=== PATIENT | male | born 1960 | race Caucasian/White ===

== ENCOUNTER 2017-04-25 15:53 | Emergency (ER) | payer BC ==
[~2017-04-25] VITALS: Ht 177.8 cm; Wt 78.9 kg
[2017-04-25 16:07] VITALS: TEMP 36.6; Ht 177.8 cm; Wt 78.9 kg
[2017-04-25] MEDS ORDERED: OXYCODONE/ACETAMINOPHEN 5-325 TAB PO STA (16:18)
[2017-04-25] MEDS ORDERED: MAGN400T6 PO (16:34)
[2017-04-25] MEDS ORDERED: MULT-506 PO (16:34)
[2017-04-25] MEDS ORDERED: OMEG10007 PO (16:34)
[2017-04-25] MEDS ORDERED: CYAN10005 PO (16:34)
--- NOTE | 2017-04-25 17:06 | DIAGNOSTIC IMAGING REPORT ---
L RIBS UNILATERAL WITH PA CHEST CLINICAL HISTORY: Left posterior rib pain following trauma. COMPARISON STUDY: No previous studies for comparison. FINDINGS: There is no pneumothorax. There is a suspected trace left pleural effusion. Left basilar opacity favors atelectasis. There are suspected cervical ribs. There are acute mildly displaced fractures of the lateral left fifth, sixth and seventh ribs with an acute nondisplaced fracture of the lateral left eighth rib. There are several age indeterminate minimally displaced posterior left rib fractures, including the left ninth rib. There is suspected emphysema. Cardiomediastinal silhouette is unremarkable. IMPRESSION: 1. Acute mildly displaced fractures of the lateral left fifth, sixth and seventh ribs and acute nondisplaced fracture of the lateral left eighth rib. Several age indeterminate minimally displaced posterior left-sided rib fractures. No pneumothorax. Trace left pleural effusion which may reflect a tiny hemothorax. 2. Suspected emphysema. Electronically signed by: Arnoldo Gabriel M.D. 04/25/2017 5:04 PM Dictated Date/Time: 04/25/2017 4:57 PM
[2017-04-25] MEDS ORDERED: OXYC-106 PO (17:36)
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
[2017-04-25 18:23] VITALS: BP 128/76; PULSE 81; O2SAT 98
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
== END 2017-04-25 18:25 | disposition home or self-care (01) ==
LOC: C.EDB 15:56 → C.EDC 18:25
DX: S22.42XA Multiple fractures of ribs, left side, initial encounter for closed fracture (principal); V28.0XXA Motorcycle driver injured in noncollision transport accident in nontraffic accident, initial encounter; Y93.55 Activity, bike riding; J90 Pleural effusion, not elsewhere classified; Z86.718 Personal history of other venous thrombosis and embolism

== ENCOUNTER 2017-04-27 10:17 | Inpatient (IN) | payer BC ==
[~2017-04-27] VITALS: Ht 175.3 cm; Wt 78.6 kg
[~2017-04-27 10:17] MED LIST: CYAN10005 PO; MAGN400T6 PO; MULT-506 PO; OMEG10007 PO; OXYC-106 PO
[2017-04-27] MEDS ORDERED: SODIUM CHLORIDE 0.9% 1000ML 1,000 ML IV STA (10:37)
[2017-04-27] MEDS ORDERED: ONDANSETRON INJ 2 MG/ML 2 ML VIAL IV STA (10:37)
[2017-04-27] MEDS ORDERED: MoRPHine SULFATE 10 MG/ML CARP/VIAL IV STA (10:37)
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
[2017-04-27 11:11] LABS: COMPLETE YES; HEMATOCRIT 47.2 % (42-52); IG% 0.2 %; LYMPH ABS # 0.89 K/uL (1.2-3.4); MEAN CELL VOLUME 94.6 fL (80-100); MEAN CORPUSCULAR HEMOGLOBIN 31.7 pg (25-34); MEAN CORPUSCULAR HGB CONC 33.5 g/dl (32-36); MEAN PLATELET VOLUME 10.9 fL (7.4-10.4); MONO % 8.9 %; NEUT % 84.9 %; PLATELET COUNT 183 K/uL (130-400); RED BLOOD COUNT 4.99 M/uL (4.7-6.1); WHITE BLOOD COUNT 14.79 K/uL (4.8-10.8)
--- NOTE | 2017-04-27 11:12 | DIAGNOSTIC IMAGING REPORT ---
CHEST ONE VIEW PORTABLE CLINICAL HISTORY: Increasing chest pain. Fractures. Trauma. COMPARISON STUDY: 04/25/2017 FINDINGS: The cardiac and mediastinal contours remain stable. There are progressive bibasilar opacities, likely atelectatic, although a pneumonia could appear similar. No pneumothorax is visualized.[ IMPRESSION: Developing bibasilar opacities, likely atelectatic. No evidence of pneumothorax. Suspected trace pleural effusions. Electronically signed by: Juanito Landeros M.D. 04/27/2017 11:11 AM Dictated Date/Time: 04/27/2017 11:09 AM
[2017-04-27 11:35] LABS: ALT/SGPT 30 U/L (12-78); AST/SGOT 21 U/L (15-37); BLOOD UREA NITROGEN 15 mg/dl (7-18); BUN/CREATININE RATIO 17.3 (10-20); CALCIUM 8.8 mg/dl (8.5-10.1); CARBON DIOXIDE 31 mmol/L (21-32); CHLORIDE 98 mmol/L (98-107); CREATININE 0.89 mg/dl (0.60-1.40); GLUCOSE 149 mg/dl (70-99); POTASSIUM 4.1 mmol/L (3.5-5.1); SODIUM 135 mmol/L (136-145)
[2017-04-27 11:37] LABS: ALKALINE PHOSPHATASE 83 U/L (45-117)
[2017-04-27] MEDS ORDERED: MoRPHine SULFATE 4 MG/ML 1 ML CARP\\VIAL IV STA ×2 (11:53→13:38)
[2017-04-27] MEDS ORDERED: OPTIRAY 320 IV PRN (13:15)
--- NOTE | 2017-04-27 13:17 | DIAGNOSTIC IMAGING REPORT ---
CT OF THE CHEST WITH IV CONTRAST CLINICAL HISTORY: Worsening left-sided chest wall pain COMPARISON STUDY: Conventional radiographic study of the ribs dated 04/25/2017 TECHNIQUE: Following the IV administration of 93 mL of Optiray-320, CT of the thorax was performed from the thoracic inlet to the lung bases. Images are reviewed in the axial, sagittal, and coronal planes. IV contrast was administered without complication. A dose lowering technique was utilized adhering to the principles of ALARA. CT DOSE: 1695.13 mGy.cm FINDINGS: Thyroid: Imaged portions of the thyroid gland are normal in appearance. Thoracic aorta: The thoracic aorta is normal in course and caliber, noting standard 3-vessel arch anatomy. No aneurysm or dissection is seen. Pulmonary vasculature: The pulmonary trunk is normal in caliber. There are no central filling defects identified to suggest pulmonary embolus. Note that this examination was not protocoled for the evaluation of pulmonary emboli. HEART: The heart is normal in size and configuration, without pericardial effusion. Lungs and pleural spaces: No pneumothorax is visualized. There are low lung volumes. There is a small left pleural effusion. There are bibasilar opacities, likely representing atelectasis. There is a calcified granuloma within the lingula. Mediastinum: There is no mediastinal lymphadenopathy. Lilian: Clear. Axilla: Clear. Upper abdomen: Partially visualized upper abdominal viscera is within normal limits. Skeletal structures: There are fractures of the left fifth through 10th ribs. IMPRESSION: 1. Fractures of the left fifth through 10th ribs 2. No evidence of pneumothorax 3. No evidence of mediastinal hematoma 4. Small left pleural effusion 5. Low lung volumes with dependent airspace opacities, statistically atelectatic. Electronically signed by: Juanito Landeros M.D. 04/27/2017 1:16 PM Dictated Date/Time: 04/27/2017 1:09 PM
--- NOTE | 2017-04-27 13:19 | DIAGNOSTIC IMAGING REPORT ---
CT ABD/PELVIS IV AND ORAL CONT CLINICAL HISTORY: Increasing left-sided pain status post trauma COMPARISON STUDY: None. TECHNIQUE: Following the IV administration of 93 mL of Optiray-320, CT scan of the abdomen and pelvis was performed from the lung bases to the proximal femurs. Images are reviewed in the axial, sagittal, and coronal planes. IV contrast was administered without complication. A dose lowering technique was utilized adhering to the principles of ALARA. CT DOSE: FINDINGS: Lower chest: There is a small left pleural effusion. There are dependent bibasilar airspace opacities likely atelectatic. Multiple left-sided rib fractures are visualized. Liver: The contrast-enhanced liver is normal in size, contour, and attenuation. There is no intrahepatic biliary ductal dilatation. The hepatic veins and portal veins are patent. Gallbladder: Unremarkable. Spleen: Normal in size and attenuation. Pancreas: Unremarkable. Adrenal glands: Unremarkable. Kidneys: There is symmetric renal cortical enhancement. The kidneys are normal in size without hydronephrosis. Bowel: There are no transition zones indicate bowel obstruction. There are no extraluminal air collections. There is no interloop fluid. There is no acute diverticulitis. There are no findings to indicate acute appendicitis. Peritoneum: There is no intraperitoneal free air or abdominal ascites. Vasculature: The abdominal aorta is normal in course and caliber. Adenopathy: None. Pelvic viscera: The prostate is mildly enlarged Skeletal structures: There are multiple left-sided rib fractures IMPRESSION: 1. No evidence of acute intra-abdominal or pelvic injury 2. Multiple left-sided rib fractures 3. Small left pleural effusion 4. Low lung volumes with dependent bibasal airspace opacities likely atelectatic Electronically signed by: Juanito Landeros M.D. 04/27/2017 1:18 PM Dictated Date/Time: 04/27/2017 1:16 PM
[2017-04-27] MEDS ORDERED: LORAZEPAM 2 MG/ML 1 ML VIAL IV STA (13:38)
[2017-04-27] MEDS ORDERED: ZOLPIDEM TARTRATE 5 MG TAB PO PRN (14:00)
[2017-04-27] MEDS ORDERED: ACETAMINOPHEN 325 MG TAB PO PRN (14:00)
[2017-04-27] MEDS ORDERED: ONDANSETRON INJ 2 MG/ML 2 ML VIAL IV PRN (14:00)
[2017-04-27] MEDS ORDERED: MAGNESIUM HYDROXIDE SUSP 30 ML UDC PO PRN (14:00)
[2017-04-27] MEDS ORDERED: ALUMINUM/MAGNESIUM/SIMETH (MAALOX MAX) 30 ML UDC PO PRN (14:00)
[2017-04-27] MEDS ORDERED: PANTOprazole SOD 40 MG TAB PO STA (14:03)
[2017-04-27] MEDS ORDERED: HYDROCODONE/ACETAMOPHEN 5/325MG TAB PO PRN (14:15)
[2017-04-27] MEDS ORDERED: HydrALAZINE HCL 20 MG/ML VIAL IV. PRN (14:15)
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
[2017-04-27] MEDS ORDERED: MoRPHine SULFATE 4 MG/ML 1 ML CARP\\VIAL IV PRN (14:30)
[2017-04-27] MEDS ORDERED: IV FLUIDS COMPLETED PRN (15:15)
[2017-04-27 15:50] VITALS: BP 140/88; PULSE 103; TEMP 36.7; O2SAT 97; Ht 175.3 cm; Wt 78.6 kg
[2017-04-27 16:00] VITALS: O2SAT 98
[2017-04-27] MEDS: SODIUM CHLORIDE 0.9% 1000ML 1,000 ML IV SCH (16:01)
[2017-04-27 17:10] LABS: PROTHROMBIN TIME (PATIENT) 10.7 SECONDS (9.0-12.0)
[2017-04-27 17:11] LABS: URINE APPEARANCE CLEAR (CLEAR); URINE BILIRUBIN NEG (NEG); URINE COLOR YELLOW; URINE NITRITE NEG (NEG); URINE SPECIFIC GRAVITY > 1.045 (1.000-1.030); UROBILINOGEN NEG (NEG); ZZUR CULT IF INDIC CLEAN CATCH NO
[2017-04-27 17:30] LABS: MANUAL MICROSCOPIC REQUIRED? NO; REVIEW REQ? NO
[2017-04-27] MEDS: POLYETHYLENE (MIRALAX) 17 GM PACK PO PRN (17:42)
[2017-04-27 18:58] VITALS: BP 123/73; PULSE 92; TEMP 37.4; O2SAT 99
[2017-04-27] MEDS: HYDROCODONE/ACETAMOPHEN 5/325MG TAB PO PRN (21:22)
[2017-04-27] MEDS: HEPARIN SOD 5000 UNIT/0.5 ML CARP SQ SCH (21:23)
[2017-04-28] VITALS (9 sets, daily range): BP systolic 100–141; BP diastolic 57–85; PULSE 66–80; TEMP 36.6–37.1; O2SAT 86–99
[2017-04-28] MEDS: SODIUM CHLORIDE 0.9% 1000ML 1,000 ML IV SCH ×2 (02:16→12:21)
[2017-04-28] MEDS: HYDROCODONE/ACETAMOPHEN 5/325MG TAB PO PRN (03:11)
[2017-04-28] MEDS: HEPARIN SOD 5000 UNIT/0.5 ML CARP SQ SCH ×3 (06:14→21:17)
[2017-04-28] MEDS ORDERED: KETOROLAC TROMETHAMINE 30 MG/ML VIAL IV ONE (08:45)
[2017-04-28] MEDS: OMEGA-3 (PURIFIED FISH OIL) 1 GM CAP PO SCH (09:24)
[2017-04-28] MEDS: MULTIVITAMIN TAB PO SCH (09:25)
[2017-04-28] MEDS: PANTOprazole SOD 40 MG TAB PO SCH (09:25)
[2017-04-28] MEDS: MAGNESIUM OXIDE 400 MG TAB PO SCH (09:26)
[2017-04-28] MEDS: CYANOCOBALAMIN 500 MCG TAB (VIT B-12) PO SCH (09:26)
[2017-04-28] MEDS: LIDODERM (LIDOCAINE) PATCH 5% TD SCH (10:07)
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
[2017-04-28] MEDS: POLYETHYLENE (MIRALAX) 17 GM PACK PO PRN ×2 (11:16→11:17)
[2017-04-28] MEDS: SENNA 8.6 MG TAB PO SCH (12:00)
[2017-04-28] MEDS: ACETAMINOPHEN 500 MG TAB PO SCH ×2 (12:46→21:13)
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
[2017-04-28] MEDS: OXYCODONE HCL IR 5 MG TAB (IMMEDIATE RELEASE) PO PRN ×2 (17:36→23:26)
[2017-04-28] MEDS: BACLOFEN 10 MG TAB PO PRN (21:12)
[2017-04-29] VITALS (8 sets, daily range): BP systolic 115–133; BP diastolic 65–82; PULSE 65–89; TEMP 36.7–37.1; O2SAT 92–97
[2017-04-29] MEDS: BACLOFEN 10 MG TAB PO PRN ×3 (04:37→19:26)
[2017-04-29] MEDS: ACETAMINOPHEN 500 MG TAB PO SCH ×3 (06:34→20:44)
[2017-04-29] MEDS: HEPARIN SOD 5000 UNIT/0.5 ML CARP SQ SCH ×3 (06:34→20:47)
[2017-04-29] MEDS: OXYCODONE HCL IR 5 MG TAB (IMMEDIATE RELEASE) PO PRN ×3 (06:35→19:26)
[2017-04-29] MEDS: MAGNESIUM OXIDE 400 MG TAB PO SCH (07:18)
[2017-04-29] MEDS: MULTIVITAMIN TAB PO SCH (07:19)
[2017-04-29] MEDS: SENNA 8.6 MG TAB PO SCH (07:19)
[2017-04-29] MEDS: OMEGA-3 (PURIFIED FISH OIL) 1 GM CAP PO SCH (07:19)
[2017-04-29] MEDS: LIDODERM (LIDOCAINE) PATCH 5% TD SCH ×2 (07:19→10:15)
[2017-04-29] MEDS: CYANOCOBALAMIN 500 MCG TAB (VIT B-12) PO SCH (07:19)
[2017-04-29] MEDS: PANTOprazole SOD 40 MG TAB PO SCH (07:19)
[2017-04-29] MEDS: NAPROXEN 250 MG TAB PO SCH ×2 (08:56→20:45)
[2017-04-29] MEDS: TAPENTADOL ER 50 MG TABCR PO SCH ×2 (10:14→20:48)
--- NOTE | 2017-04-29 14:38 | DIAGNOSTIC IMAGING REPORT ---
CHEST 2 VIEWS ROUTINE CLINICAL HISTORY: rib fractures, effusions, interval change COMPARISON STUDY: 04/27/2017 FINDINGS: Mild interval increase in volume of left pleural effusion. Lungs otherwise are clear. No evidence pneumothorax. IMPRESSION: Mild increase in volume of a left pleural effusion. No evidence pneumothorax. The above report was generated using voice recognition software. It may contain grammatical, syntax or spelling errors. Electronically signed by: Mynor Lorenz M.D. 04/29/2017 2:36 PM Dictated Date/Time: 04/29/2017 2:35 PM
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
[2017-04-30] MEDS: OXYCODONE HCL IR 5 MG TAB (IMMEDIATE RELEASE) PO PRN ×4 (00:55→19:53)
[2017-04-30 03:54] VITALS: BP 126/79; PULSE 60; TEMP 36.7; O2SAT 97
[2017-04-30 06:05] LABS: HEMATOCRIT 38.8 % (42-52); MEAN CELL VOLUME 94.4 fL (80-100); MEAN CORPUSCULAR HEMOGLOBIN 30.4 pg (25-34); MEAN CORPUSCULAR HGB CONC 32.2 g/dl (32-36); MEAN PLATELET VOLUME 10.8 fL (7.4-10.4); PLATELET COUNT 170 K/uL (130-400); RED BLOOD COUNT 4.11 M/uL (4.7-6.1); WHITE BLOOD COUNT 5.84 K/uL (4.8-10.8)
[2017-04-30] MEDS: ACETAMINOPHEN 500 MG TAB PO SCH ×3 (06:18→21:22)
[2017-04-30 06:35] LABS: BUN/CREATININE RATIO 19.6 (10-20); CALCIUM 8.4 mg/dl (8.5-10.1); CREATININE 0.69 mg/dl (0.60-1.40)
--- NOTE | 2017-04-30 07:10 | DIAGNOSTIC IMAGING REPORT ---
CHEST ONE VIEW PORTABLE CLINICAL HISTORY: Left-sided chest pain. History of pleural effusion. COMPARISON STUDY: 04/29/2017 FINDINGS: There is a persistent moderate left pleural effusion with associated left basilar atelectasis/consolidation. Minor right basilar atelectatic changes remain stable. There is no pneumothorax. Heart is mildly enlarged.[ IMPRESSION: No significant change. Persistent moderate left pleural effusion with associated left basilar airspace opacities. No evidence of pneumothorax. Electronically signed by: Juanito Landeros M.D. 04/30/2017 7:09 AM Dictated Date/Time: 04/30/2017 7:08 AM
[2017-04-30 07:36] VITALS: BP 126/72; PULSE 76; TEMP 36.7; O2SAT 98
[2017-04-30] MEDS: PANTOprazole SOD 40 MG TAB PO SCH (08:16)
[2017-04-30] MEDS: CYANOCOBALAMIN 500 MCG TAB (VIT B-12) PO SCH (08:16)
[2017-04-30] MEDS: TAPENTADOL ER 50 MG TABCR PO SCH ×2 (08:16→19:52)
[2017-04-30] MEDS: NAPROXEN 250 MG TAB PO SCH ×2 (08:16→19:56)
[2017-04-30] MEDS: SENNA 8.6 MG TAB PO SCH (08:16)
[2017-04-30] MEDS: MAGNESIUM OXIDE 400 MG TAB PO SCH (08:17)
[2017-04-30] MEDS: OMEGA-3 (PURIFIED FISH OIL) 1 GM CAP PO SCH (08:17)
[2017-04-30] MEDS: MULTIVITAMIN TAB PO SCH (08:17)
[2017-04-30] MEDS: LIDODERM (LIDOCAINE) PATCH 5% TD SCH (09:32)
[2017-04-30 10:58] VITALS: BP 124/70; PULSE 65; TEMP 36.7; O2SAT 95
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
[2017-04-30 16:07] VITALS: BP 148/88; PULSE 60; TEMP 36.9; O2SAT 94
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
[2017-04-30 19:14] VITALS: BP 116/66; PULSE 65; TEMP 36.8; O2SAT 95
[2017-04-30 23:51] VITALS: BP_SYST 116; BP_DIAS 60; BP_DIAS 67; PULSE 62; PULSE 76; TEMP 36.6; TEMP 36.9; O2SAT 92; O2SAT 93
[2017-05-01] VITALS (13 sets, daily range): BP systolic 101–135; BP diastolic 55–78; PULSE 52–86; TEMP 36.7–37.8; O2SAT 93–97
[2017-05-01] MEDS: ACETAMINOPHEN 500 MG TAB PO SCH (05:40)
[2017-05-01] MEDS: OXYCODONE HCL IR 5 MG TAB (IMMEDIATE RELEASE) PO PRN ×2 (05:40→16:09)
[2017-05-01] MEDS ORDERED: DEXAMETHASONE SOD INJ 4 MG/ML VIAL ONE (06:31)
[2017-05-01] MEDS ORDERED: MIDAZOLAM HCL 1 MG/ML 2ML VIAL ONE (06:31)
[2017-05-01] MEDS ORDERED: LIDOCAINE HCL 2% 2 ML VIAL (20MG/ML) ONE (06:31)
[2017-05-01] MEDS ORDERED: ROCURONIUM BROMIDE 10 MG/ML 5 ML VIAL IV ONE (06:31)
[2017-05-01] MEDS ORDERED: FENTANYL CITRATE INJ 50 MCG/1 ML 2 ML VIAL ONE (06:31)
[2017-05-01] MEDS ORDERED: ONDANSETRON INJ 2 MG/ML 2 ML VIAL ONE (06:31)
[2017-05-01] MEDS ORDERED: PROPOFOL IV EMULSION 10 MG/ML 20 ML VIAL IV ONE ×2 (06:31→08:29)
[2017-05-01] MEDS ORDERED: CLINDAMYCIN PHOS 150 MG/ML 2 ML VIAL ONE (06:50)
[2017-05-01] MEDS ORDERED: SODIUM CHLORIDE 0.9% PF 50 ML VIAL ONE (06:55)
[2017-05-01] MEDS ORDERED: BUPIVACAINE LIPOSOME 1/3% 266 MG/20 ML VIAL INFIL ONE (06:55)
--- NOTE | 2017-05-01 07:05 | History & Physical Bridge Note ---
H&P Re-Evaluation Bridge Note: I have examined the patient, reviewed the History & Physical and in the interval since the performance of the History & Physical I have noted the following changes of clinical significance: No changes noted
[2017-05-01] MEDS ORDERED: NEOSTIGMINE METHYLSULFATE 5 MG/5 ML SYR ONE (08:29)
[2017-05-01] MEDS ORDERED: GLYCOPYRROLATE INJ 0.2 MG/ML VIAL ONE (08:29)
[2017-05-01 08:39] LABS: MEAN CELL VOLUME 93.6 fL (80-100); MEAN CORPUSCULAR HEMOGLOBIN 30.8 pg (25-34); MEAN CORPUSCULAR HGB CONC 32.9 g/dl (32-36); MEAN PLATELET VOLUME 11.2 fL (7.4-10.4); PLATELET COUNT 206 K/uL (130-400); RED BLOOD COUNT 4.38 M/uL (4.7-6.1); WHITE BLOOD COUNT 5.25 K/uL (4.8-10.8)
[2017-05-01] MEDS ORDERED: HYDROmorphone INJ 1 MG/ML SYR IV PRN (09:00)
[2017-05-01] MEDS: LIDODERM (LIDOCAINE) PATCH 5% TD SCH (09:00)
[2017-05-01] MEDS ORDERED: EpHEDrine SULFATE INJ 50 MG/ML AMP IV PRN (09:00)
[2017-05-01] MEDS ORDERED: ATROPINE SULFATE 0.1 MG/ML 5ML SYR IV PRN (09:00)
[2017-05-01] MEDS ORDERED: ONDANSETRON INJ 2 MG/ML 2 ML VIAL IV PRN (09:00)
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
--- NOTE | 2017-05-01 09:11 | DIAGNOSTIC IMAGING REPORT ---
CHEST ONE VIEW PORTABLE HISTORY: effusion COMPARISON: Chest 04/30/2017. FINDINGS: Left-sided chest tube terminates in the left upper lung zone. There is a small left pneumothorax with a maximal pleural gap of 1.4 cm. Trace left pleural effusion has improved. Patchy densities within the left lung base favor atelectasis. Suspect a trace right pleural effusion. A few scattered densities within the right midlung zone also favor atelectasis. The heart is stable in size. IMPRESSION: 1. Decrease in size in the left pleural effusion status post chest tube placement. There is a small left pneumothorax. 2. Left basilar airspace opacities are nonspecific but favor atelectasis. 3. A few linear densities within the right midlung zone. Electronically signed by: Vance Rosario M.D. 05/01/2017 9:09 AM Dictated Date/Time: 05/01/2017 9:06 AM
[2017-05-01] MEDS: FENTANYL CITRATE INJ 50 MCG/1 ML 2 ML VIAL IV PRN ×4 (09:14→09:30)
[2017-05-01 09:31] LABS: PLEURAL FLUID TOTAL PROTEIN 4.2 g/dl
--- NOTE | 2017-05-01 09:54 | Anesthesiology Progress Note ---
Anesthesia Post Op Note Date & Time May 01, 2017 at 09:53 Vital Signs Pain Intensity: 0 Vital Signs Past 12 Hours Date Time Temp Pulse Resp B/P (MAP) Pulse Ox O2 Delivery O2 Flow Rate FiO2 05/01/17 09:49 55 14 97 05/01/17 09:49 56 14 05/01/17 09:48 56 14 05/01/17 09:48 56 14 99 05/01/17 09:46 112/69 05/01/17 09:43 64 12 05/01/17 09:43 65 12 98 05/01/17 09:41 114/71 05/01/17 09:38 64 13 100 05/01/17 09:38 65 13 05/01/17 09:36 113/68 05/01/17 09:33 59 14 98 05/01/17 09:33 58 14 05/01/17 09:32 63 14 99 05/01/17 09:32 63 14 05/01/17 09:31 115/73 05/01/17 09:27 63 15 05/01/17 09:27 64 15 100 05/01/17 09:26 122/77 05/01/17 09:22 75 18 05/01/17 09:22 70 18 05/01/17 09:21 119/79 05/01/17 09:17 56 12 100 05/01/17 09:17 56 12 05/01/17 09:16 36.7 65 17 121/74 (84) 99 Nasal Cannula 2 05/01/17 09:16 121/74 05/01/17 09:13 61 21 100 05/01/17 09:13 61 21 05/01/17 09:11 121/72 05/01/17 09:08 63 15 100 05/01/17 09:08 63 15 05/01/17 09:06 118/73 05/01/17 09:03 66 18 100 05/01/17 09:03 65 18 05/01/17 09:02 66 17 05/01/17 09:02 66 17 100 05/01/17 09:01 67 19 127/83 97 05/01/17 09:01 68 19 05/01/17 08:57 131/64 05/01/17 08:56 69 17 100 05/01/17 08:56 69 17 05/01/17 08:51 70 17 05/01/17 08:51 71 17 124/74 100 05/01/17 08:46 76 22 122/73 97 05/01/17 08:46 73 22 05/01/17 08:42 124/76 05/01/17 08:41 36.6 83 16 124/76 (82) 100 Oxymask 10 05/01/17 07:30 Room Air 2.0 05/01/17 04:00 Room Air 05/01/17 03:50 36.7 66 18 117/69 (85) 95 Room Air 05/01/17 00:01 Room Air 04/30/17 23:51 36.6 76 18 116/60 (78) 92 Nasal Cannula 2.0 Humidified Oxygen 04/30/17 23:51 36.9 62 18 116/67 (83) 93 Room Air Notes Mental Status: alert / awake / arousable, participated in evaluation Pt Amnestic to Procedure: Yes Nausea / Vomiting: adequately controlled Pain: adequately controlled Airway Patency, RR, SpO2: stable & adequate BP & HR: stable & adequate Hydration State: stable & adequate Anesthetic Complications: no major complications apparent
[2017-05-01] MEDS: D5W AND 1/2NSS 1,000 ML IV SCH ×2 (10:00→18:34)
[2017-05-01] MEDS: KETOROLAC TROMETHAMINE 15 MG/ML VIAL IV. SCH ×2 (10:32→18:13)
[2017-05-01 10:34] LABS: PLEURAL FLUID APPEARANCE CLOUDY; PLEURAL FLUID COLOR RED; PLEURAL FLUID SOURCE LEFT LUNG; PLEURAL FLUID WBC (A) 1739 /uL
[2017-05-01 10:35] LABS: PLEURAL FLUID MONONUC RELAT 85.4 %; PLEURAL FLUID POLYNUC 14.6 %
[2017-05-01] MEDS: TAPENTADOL ER 50 MG TABCR PO SCH ×2 (11:46→20:44)
[2017-05-01] MEDS: SENNA 8.6 MG TAB PO SCH (11:46)
[2017-05-01] MEDS: OMEGA-3 (PURIFIED FISH OIL) 1 GM CAP PO SCH (11:47)
[2017-05-01] MEDS: MULTIVITAMIN TAB PO SCH (11:47)
[2017-05-01] MEDS: DOCUSATE SODIUM 100 MG CAP PO SCH ×2 (11:47→20:37)
[2017-05-01] MEDS: CYANOCOBALAMIN 500 MCG TAB (VIT B-12) PO SCH (11:47)
[2017-05-01] MEDS: PANTOprazole SOD 40 MG TAB PO SCH (11:47)
[2017-05-01] MEDS: NAPROXEN 250 MG TAB PO SCH ×2 (11:48→20:38)
[2017-05-01] MEDS: METOCLOPRAMIDE HCL INJ 5 MG/ML 2 ML VIAL IV. SCH ×2 (11:48→18:13)
[2017-05-01] MEDS: MAGNESIUM OXIDE 400 MG TAB PO SCH (11:48)
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
[2017-05-01] MEDS: ACETAMINOPHEN IV 1,000 MG in EMPTY BAG 0 ML IV SCH ×2 (13:57→21:38)
[2017-05-01] MEDS: CLINDAMYCIN IV 900 MG in DEXTROSE 5% 100ML 100 ML IV SCH ×2 (14:26→20:37)
[2017-05-02] MEDS: METOCLOPRAMIDE HCL INJ 5 MG/ML 2 ML VIAL IV. SCH (02:11)
[2017-05-02] MEDS: KETOROLAC TROMETHAMINE 15 MG/ML VIAL IV. SCH ×3 (02:11→18:00)
[2017-05-02 03:56] VITALS: BP 105/55; PULSE 72; TEMP 36.9; O2SAT 95
[2017-05-02 05:46] LABS: HEMATOCRIT 39.1 % (42-52); MEAN CELL VOLUME 93.1 fL (80-100); MEAN CORPUSCULAR HGB CONC 33.2 g/dl (32-36); MEAN PLATELET VOLUME 10.5 fL (7.4-10.4); PLATELET COUNT 189 K/uL (130-400); WHITE BLOOD COUNT 8.71 K/uL (4.8-10.8)
[2017-05-02] MEDS: D5W AND 1/2NSS 1,000 ML IV SCH ×2 (06:19→14:30)
[2017-05-02] MEDS: ACETAMINOPHEN IV 1,000 MG in EMPTY BAG 0 ML IV SCH ×4 (06:24→17:21)
[2017-05-02 06:29] LABS: BUN/CREATININE RATIO 19.3 (10-20); CALCIUM 8.3 mg/dl (8.5-10.1); CREATININE 0.78 mg/dl (0.60-1.40)
[2017-05-02] MEDS: OXYCODONE HCL IR 5 MG TAB (IMMEDIATE RELEASE) PO PRN ×2 (06:49→17:24)
--- NOTE | 2017-05-02 07:18 | DIAGNOSTIC IMAGING REPORT ---
CHEST ONE VIEW PORTABLE HISTORY: 57 years-old Male effusion left pleural effusion COMPARISON: Chest radiograph 05/01/2017 TECHNIQUE: Portable upright AP view of the chest FINDINGS: Large bore left-sided chest tube is seen with distal tip projecting towards the left lung apex. Slightly decreased size of left-sided hydropneumothorax with visceral pleural separation at the left lung apex of 12 mm, previously 14. Minimal left pleural fluid is again seen with subsegmental left basilar consolidation suggesting atelectasis, also slightly improved. Minimal atelectasis of the right lung base. Bones are grossly intact. IMPRESSION: 1. Slightly decreased size of left hydropneumothorax with stable positioning of left-sided chest tube. 2. Mild bibasilar atelectasis. The above report was generated using voice recognition software. It may contain grammatical, syntax or spelling errors. Electronically signed by: Ty Savage M.D. 05/02/2017 7:16 AM Dictated Date/Time: 05/02/2017 7:13 AM
[2017-05-02 07:50] VITALS: BP 123/73; PULSE 58; TEMP 36.8; O2SAT 97
--- NOTE | 2017-05-02 07:59 | Anesthesiology Progress Note ---
Anesthesia Post Op Note Date & Time May 02, 2017 at 07:59 Vital Signs Vital Signs Past 12 Hours Date Time Temp Pulse Resp B/P (MAP) Pulse Ox O2 Delivery O2 Flow Rate FiO2 05/02/17 07:50 36.8 58 18 123/73 (90) 97 Room Air 05/02/17 04:00 Room Air 05/02/17 03:56 36.9 72 17 105/55 (72) 95 Room Air 05/01/17 23:59 Room Air 05/01/17 23:35 36.7 62 20 105/55 (72) 94 Room Air 05/01/17 20:00 94 Room Air Notes Mental Status: alert / awake / arousable, participated in evaluation Pt Amnestic to Procedure: Yes Nausea / Vomiting: adequately controlled Pain: adequately controlled Airway Patency, RR, SpO2: stable & adequate BP & HR: stable & adequate Hydration State: stable & adequate Anesthetic Complications: no major complications apparent
[2017-05-02] MEDS: SENNA 8.6 MG TAB PO SCH (08:38)
[2017-05-02] MEDS: PANTOprazole SOD 40 MG TAB PO SCH (08:38)
[2017-05-02] MEDS: NAPROXEN 250 MG TAB PO SCH ×2 (08:38→20:47)
[2017-05-02] MEDS: POLYETHYLENE (MIRALAX) 17 GM PACK PO PRN (08:38)
[2017-05-02] MEDS: TAPENTADOL ER 50 MG TABCR PO SCH ×2 (08:38→20:46)
[2017-05-02] MEDS: MULTIVITAMIN TAB PO SCH (08:38)
[2017-05-02] MEDS: CYANOCOBALAMIN 500 MCG TAB (VIT B-12) PO SCH (08:39)
[2017-05-02] MEDS: DOCUSATE SODIUM 100 MG CAP PO SCH ×2 (08:39→20:46)
[2017-05-02] MEDS: LIDODERM (LIDOCAINE) PATCH 5% TD SCH (08:39)
[2017-05-02] MEDS: OMEGA-3 (PURIFIED FISH OIL) 1 GM CAP PO SCH (08:40)
[2017-05-02] MEDS: MAGNESIUM OXIDE 400 MG TAB PO SCH (08:40)
[2017-05-02 11:34] VITALS: BP 137/81; PULSE 75; TEMP 36.6; O2SAT 95
--- NOTE | 2017-05-02 13:34 | DIAGNOSTIC IMAGING REPORT ---
CHEST ONE VIEW PORTABLE HISTORY: chest tube removal COMPARISON: Chest 05/02/2017. FINDINGS: The left-sided chest tube has been removed. Tiny left pneumothorax with a pleural gap of 2 mm. Patchy densities within the left lung base have improved. The right lung is clear. The heart is stable in size. IMPRESSION: Status post removal of the left-sided chest tube. There is a tiny left apical pneumothorax. Improved aeration within the left lung base. Electronically signed by: Vance Rosario M.D. 05/02/2017 1:33 PM Dictated Date/Time: 05/02/2017 1:31 PM
[2017-05-02] MEDS ORDERED: ALUMINUM/MAGNESIUM SUSP 30 ML UDC PO PRN (14:15)
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
[2017-05-02 15:43] VITALS: BP 129/84; PULSE 73; TEMP 36.9; O2SAT 96
--- NOTE | 2017-05-02 15:49 | SURGERY PROGRESS NOTE ---
DATE: 05/02/2017 SUBJECTIVE: Mr. Street looks great today. I removed his chest tube and his x-ray looks quite good afterwards. His pain is better. He is on room air at 95% saturations. The fluid appeared to be bloody. The LDH 261 and glucose is 103. His x-ray looks good today. I think that the liposomal bupivacaine intercostal block has been helpful. He lives 3 hours away, we are gong to keep him 1 more day and hopefully, tomorrow, we will allow him to be discharged. MARISOL
[2017-05-02 18:58] VITALS: BP 135/78; PULSE 80; TEMP 36.7; O2SAT 98
[2017-05-02] MEDS ORDERED: NURSING VERBAL MED ORDER ONE ×2 (19:15)
[2017-05-02 20:00] VITALS: O2SAT 98
[2017-05-03] VITALS: O2SAT 98
[2017-05-03 00:09] VITALS: BP 117/65; PULSE 74; TEMP 36.8; O2SAT 98
[2017-05-03] MEDS: ACETAMINOPHEN IV 1,000 MG in EMPTY BAG 0 ML IV SCH ×2 (00:16→08:08)
[2017-05-03] MEDS: KETOROLAC TROMETHAMINE 15 MG/ML VIAL IV. SCH (02:16)
[2017-05-03 03:52] VITALS: BP 117/63; PULSE 70; TEMP 36.8; O2SAT 96
[2017-05-03 04:00] VITALS: O2SAT 96
[2017-05-03 05:45] LABS: HEMATOCRIT 38.3 % (42-52); MEAN CORPUSCULAR HEMOGLOBIN 30.8 pg (25-34); MEAN CORPUSCULAR HGB CONC 33.2 g/dl (32-36); MEAN PLATELET VOLUME 10.3 fL (7.4-10.4); PLATELET COUNT 197 K/uL (130-400); RED BLOOD COUNT 4.12 M/uL (4.7-6.1); WHITE BLOOD COUNT 6.67 K/uL (4.8-10.8)
[2017-05-03 07:30] VITALS: BP 128/71; PULSE 70; TEMP 37; O2SAT 95
[2017-05-03] MEDS: CYANOCOBALAMIN 500 MCG TAB (VIT B-12) PO SCH (08:08)
[2017-05-03] MEDS: MULTIVITAMIN TAB PO SCH (08:09)
[2017-05-03] MEDS: PANTOprazole SOD 40 MG TAB PO SCH (08:09)
[2017-05-03] MEDS: MAGNESIUM OXIDE 400 MG TAB PO SCH (08:10)
[2017-05-03] MEDS: NAPROXEN 250 MG TAB PO SCH (08:11)
[2017-05-03] MEDS: OMEGA-3 (PURIFIED FISH OIL) 1 GM CAP PO SCH (08:12)
[2017-05-03] MEDS: LIDODERM (LIDOCAINE) PATCH 5% TD SCH (08:12)
[2017-05-03] MEDS: DOCUSATE SODIUM 100 MG CAP PO SCH (08:17)
[2017-05-03] MEDS: SENNA 8.6 MG TAB PO SCH (08:17)
[2017-05-03] MEDS: TAPENTADOL ER 50 MG TABCR PO SCH (08:29)
[2017-05-03] MEDS ORDERED: NPR250 PO (09:04)
[2017-05-03] MEDS ORDERED: OXYSR10 PO (09:04)
--- NOTE | 2017-05-03 09:05 | Discharge Instructions ---
Discharge Instructions Date of Service May 03, 2017. Admission Reason for Admission: Severe Left Chest Pain From Ribs Fx Discharge Discharge Diagnosis / Problem: traumatic rib fratures Discharge Goals Goal(s): Diagnostic testing, Therapeutic intervention Activity Recommendations Activity Limitations: as noted below Lifting Limitations: until after follow-up appointment Exercise/Sports Limitations: none Driving or Machine Use: after visit with family doctor for follow up . Current Hospital Diet Patient's current hospital diet: Regular Diet Discharge Diet Recommended Diet: Regular Diet Procedures Procedures Performed: Left Video-Assisted Thoracoscopy with Drainage of Pleural Effusion Pending Studies Studies pending at discharge: no Medical Emergencies . Who to Call and When: Medical Emergencies: If at any time you feel your situation is an emergency, please call 911 immediately. . Non-Emergent Contact Non-Emergency issues call your: Primary Care Provider Call Non-Emergent contact if: temperature is above 101, your pain is unusual for you . . "Provider Documentation" section prepared by Gama Li. . VTE Core Measure Inpt VTE Proph given/why not?: Unfractionated heparin SQ
--- NOTE | 2017-05-03 09:24 | SURGERY PROGRESS NOTE ---
DATE: 05/03/2017 DATE: 05/03/2017 Mr. Street was seen today on 05/03/2017. He feels "great" today. I had a long talk with the patient and his . Quite pleased with his x-ray after removed the chest tube yesterday. At this point, I think he has done very well. He is to be discharged. I will see him back in the office in 2 weeks with a chest x-ray. I gave wound care instructions and instructed the patient to call me should any problems arise.
[2017-05-03 10:26] VITALS: BP 128/71; PULSE 70; TEMP 37; O2SAT 95
[2017-05-03] MEDS ORDERED: RXC5 PO (11:45)
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
== END 2017-05-03 11:46 | disposition home or self-care (01) | DRG 167 ==
LOC: C.EDB 10:19 → C.2E 14:03 → ENRESERV 14:23 → OBSVTOIN 04-29 09:23
PROVIDERS: ADMIT Hospitalist; ATTEND Internal Medicine
PROC: 0B9P40Z Drainage of Left Pleura with Drainage Device, Percutaneous Endoscopic Approach (ICD-10-PCS; principal; 2017-05-01 07:30)
PROC: 3E0T3BZ Introduction of Anesthetic Agent into Peripheral Nerves and Plexi, Percutaneous Approach (ICD-10-PCS; principal; 2017-05-01 07:30)
DX: J90 Pleural effusion, not elsewhere classified (principal); S22.42XA Multiple fractures of ribs, left side, initial encounter for closed fracture; V28.0XXA Motorcycle driver injured in noncollision transport accident in nontraffic accident, initial encounter; Y93.55 Activity, bike riding; Y92.89 Other specified places as the place of occurrence of the external cause; Y99.8 Other external cause status; K59.00 Constipation, unspecified; K21.9 Gastro-esophageal reflux disease without esophagitis; Z86.718 Personal history of other venous thrombosis and embolism; Z88.0 Allergy status to penicillin